=== PATIENT | female | born 1970 | race Caucasian/White ===

== ENCOUNTER 2018-10-01 21:14 | Emergency (ER) | payer MEDICAID ==
[~2018-10-01] VITALS: Ht 154.9 cm; Wt 49.9 kg
[2018-10-01 21:17] VITALS: Ht 154.9 cm; Wt 49.9 kg
[2018-10-01] MEDS ORDERED: LORAZEPAM 1 MG TAB PO ONE (23:00)
[2018-10-02] MEDS ORDERED: LORA1TAB PO (00:42)
--- NOTE | 2018-10-02 00:45 | ERD ---
ER Documentation Chief Complaint Chief Complaint SOB WITH PALPITATIONS XTODAY HPI 48-year-old female otherwise healthy presents complaining of intermittent episodes of shortness of breath and palpitations and feeling very stressed out. Symptoms have been going on intermittently for the past 8 days and usually resolve on their own. No chest pain. No cardiac past medical history. Denies any alcohol smoking or drugs. No alleviating or exacerbating factors. ROS All systems reviewed and are negative except as per history of present illness. Medications Home Meds Active Scripts Lorazepam* (Lorazepam*) 1 Mg Tablet, 1 MG PO Q8, #10 TAB Prov:DOMENICO BANKS PA-C 10/02/18 Allergies Allergies: Coded Allergies: No Known Allergy (Verified , 07/15/14) PMhx/Soc Medical and Surgical Hx: pt denies Medical Hx, pt denies Surgical Hx History of Surgery: No Anesthesia Reaction: No Hx Neurological Disorder: No Hx Respiratory Disorders: No Hx Cardiac Disorders: No Hx Psychiatric Problems: No Hx Miscellaneous Medical Probl: No Hx Alcohol Use: No Hx Substance Use: No Hx Tobacco Use: No Smoking Status: Never smoker FmHx Family History: No diabetes Physical Exam Vitals Vital Signs Date Temp Pulse Resp B/P (MAP) Pulse Ox O2 O2 Flow FiO2 Time Delivery Rate 10/01/18 98.6 85 18 156/84 98 21:17 (108) Physical Exam INITIAL VITAL SIGNS: Reviewed by me GENERAL: Awake, alert and oriented x 4, well appearing, nontoxic, speaking in full sentences. No acute distress HEAD: Atraumatic NECK: Supple. No masses. Full range of motion. No meningismus. No midline tenderness. RESPIRATORY: Clear to auscultation bilaterally. Symmetric chest wall rise. No wheezing or rales. No accessory muscle use. CV: Regular rate and rhythm. No murmurs, rubs, or gallops. ABDOMEN: Soft, non-distended. Nontender. Negative [place]. Negative McBurneys point tenderness. No CVA tenderness bilaterally. No guarding. No rebound. Result Diagram: 10/01/18 2302 10/01/18 2302 Results 24 hrs Laboratory Tests Test 10/01/18 23:02 10/01/18 23:08 White Blood Count 8.2 10^3/ul Red Blood Count 4.28 10^6/ul Hemoglobin 12.6 g/dl Hematocrit 37.7 % Mean Corpuscular Volume 88.1 fl Mean Corpuscular Hemoglobin 29.4 pg Mean Corpuscular Hemoglobin Concent 33.4 g/dl Red Cell Distribution Width 12.7 % Platelet Count 249 10^3/UL Mean Platelet Volume 10.2 fl Immature Granulocytes % 0.100 % Neutrophils % 57.8 % Lymphocytes % 31.1 % Monocytes % 8.5 % Eosinophils % 2.1 % Basophils % 0.4 % Nucleated Red Blood Cells % 0.0 /100WBC Immature Granulocytes # 0.010 10^3/ul Neutrophils # 4.8 10^3/ul Lymphocytes # 2.6 10^3/ul Monocytes # 0.7 10^3/ul Eosinophils # 0.2 10^3/ul Basophils # 0.0 10^3/ul Nucleated Red Blood Cells # 0.0 10^3/ul Sodium Level 139 mmol/L Potassium Level 3.8 mmol/L Chloride Level 103 mmol/L Carbon Dioxide Level 28 mmol/L Anion Gap 8 Blood Urea Nitrogen 10 mg/dl Creatinine 0.59 mg/dl Est Glomerular Filtrat Rate mL/min > 60 mL/min Glucose Level 96 mg/dl Calcium Level 9.9 mg/dl Troponin I < 0.012 ng/ml POC Beta HCG, Qualitative NEGATIVE Current Medications Medications Dose Sig/Renetta Start Time Status Last (Trade) Ordered Route PRN Stop Time Admin Dose Reason Admin Lorazepam 1 mg ONCE ONCE 10/01/18 DC 10/01/18 (Ativan) PO 23:00 23:12 10/01/18 23:01 Procedures/MDM Patient presents with palpitations and shortness of breath. She does admit to increased stress. EKG is normal. No evidence of ST elevation or acute ischemic changes. Lab work including troponin is negative. Chest x-ray is shows mild atelectasis/infiltrate however patient is afebrile and is not complaining of cough so I do not believe she has pneumonia. Also her lungs are clear. She felt much better after the Ativan. He is discharged home with prescription for a small amount of Ativan. Patient counseled regarding my diagnostic impression and care plan. Prior to discharge all questions answered. Pt agrees with treatment plan and understands strict return precautions. Pt is instructed to follow up with primary care provider within 24-48 hours. Precautionary instructions provided including instructions to return to the ER if not improvi ng or for any worsening or changing symptoms or concerns. Departure Diagnosis: Primary Impression: Anxiety Additional Impression: Atypical chest pain Condition: Stable Patient Instructions: Anxiety Reaction Additional Instructions: Llame al doctor MAANA y ashia jordi CHRISTIANO PARA DENTRO DE 1-2 MARIE.Dgale a la secretaria que nosotros le instruimos hacer esta christiano.Avise o llame si newman condicin se empeora antes de la christiano. Regresa aqui si peor o no mejor. DOMENICO BANKS PA-C Oct 02, 2018 00:45
[2018-10-02 00:54] VITALS: BP 138/85; PULSE 78; RESP 18
== END 2018-10-02 00:55 | disposition home or self-care (01) ==
LOC: FTE 21:14
DX: F41.9 Anxiety disorder, unspecified (principal); R07.89 Other chest pain
CPT/HCPCS: 71045; 80048; 81025; 84484; 85025; 93005; Z7502; Z7610